=== PATIENT | female | born 1980 | race Caucasian/White ===

== ENCOUNTER 2018-02-27 08:00 | Outpatient (CLI) | payer MEDICAID ==
[2018-02-27 19:09] LABS: BASOPHILS # (AUTO) 0.1 10^3/uL (0.0-0.1); BASOPHILS % (AUTO) 0.9 %; EOSINOPHILS # (AUTO) 0.5 10^3/uL (0.0-0.7); EOSINOPHILS % (AUTO) 6.4 %; HGB - HEMOGLOBIN 10.7 g/dL (12.0-16.0); LYMPHOCYTES # (AUTO) 2.3 10^3/uL (1.5-3.5); MEAN CORPUSCULAR HEMOGLOBIN 24.6 pg (27.0-31.0); MEAN CORPUSCULAR VOLUME 79.6 fL (81.0-99.0); MEAN PLATELET VOLUME 8.7 fL (7.9-10.8); MONOCYTES # (AUTO) 0.5 10^3/uL (0.0-1.0); NEUTROPHILS # (AUTO) 5.1 10^3/uL (1.5-6.6); NEUTROPHILS % (AUTO) 59.7 %; PLT - PLATELET COUNT 320 10^3/uL (130-450); RED BLOOD COUNT 4.33 10^6/uL (4.20-5.40); RED CELL DISTRIBUTION WIDTH 17.2 % (12.0-15.0); WHITE BLOOD COUNT 8.5 x10^3/uL (4.8-10.8)
[2018-02-27 19:20] LABS: HB2 TOTAL 11.6 g/dL; HEMOGLOBIN A1C 0.42 g/dL; HEMOGLOBIN A1C % 5.5 % (4.6-6.2)
[2018-02-27 19:23] LABS: % IRON SATURATION 9 % (20-50); ALBUMIN 3.7 g/dL (3.2-5.5); ALBUMIN/GLOBULIN RATIO 1.1 (1.0-2.2); ALKALINE PHOSPHATASE 53 IU/L (42-121); ALT ALANINE AMINOTRANSFERASE 15 IU/L (10-60); AST ASPARTATE AMINOTRANSFERASE 19 IU/L (10-42); BILIRUBIN,TOTAL 0.7 mg/dL (0.2-1.0); BUN - BLOOD UREA NITROGEN 15 mg/dL (6-20); CALCIUM 8.4 mg/dL (8.5-10.3); CARBON DIOXIDE - CO2 27 mmol/L (21-32); CHLORIDE 102 mmol/L (101-111); CHOLESTEROL 117 mg/dL; CREATININE 0.6 mg/dL (0.4-1.0); GFR - MDRD 112 (>89); GLUCOSE 97 mg/dL (70-100); HDL CHOLESTEROL 26 mg/dL; IRON 36 ug/dL (28-170); LDL CHOLESTEROL,CALCULATED 78 mg/dL; SODIUM 135 mmol/L (135-145); TOTAL IRON BINDING CAPACITY 406 ug/dL (250-450); TOTAL PROTEIN 7.2 g/dL (6.7-8.2); TRANSFERRIN 290 mg/dL (192-382); VLDL CHOLESTEROL 13 mg/dL
[2018-02-27 19:24] LABS: CHOL/HDL RATIO 4.5 (<4.4)
[2018-02-27 19:30] LABS: THYROID STIMULATING HORMONE 0.97 uIU/mL (0.34-5.60)
[2018-02-27 19:34] LABS: FERRITIN 10.9 ng/mL (11.0-306.8)
== END 2018-02-27 08:01 ==
LOC: LAB.WCP 08:00
PROVIDERS: ATTEND Physician Assistant
DX: Z00.00 Encounter for general adult medical examination without abnormal findings (principal); E66.9 Obesity, unspecified; Z86.2 Personal history of diseases of the blood and blood-forming organs and certain disorders involving the immune mechanism
CPT/HCPCS: 36415; 80053; 80061; 82728; 83036; 83540; 83721; 84443; 84466; 85025

== ENCOUNTER 2018-03-19 13:18 | Outpatient (CLI) | payer MEDICAID ==
--- NOTE | 2018-03-19 14:15 | XRAY Report ---
Procedure Date: 03/19/2018 Accession Number: [id number] / [id number] Procedure: [place] - Modified Barium Swallow W/SP CPT Code: FULL RESULT: EXAM: Modified Barium Swallow W/SP DATE: 03/19/2018 2:09 PM CLINICAL HISTORY: GLOBUS SENSATION TECHNIQUE: Lateral fluoroscopy is performed during swallowing of thin barium and barium impregnated food. COMPARISON: None FINDINGS: The swallowing mechanism proceeds normally. No findings of aspiration, cricopharyngeus dysfunction, nasopharyngeal reflux or other abnormality. Fluoroscopy time 1 minute 12 seconds, number of images 61. IMPRESSION: Normal barium swallow.
== END 2018-03-19 13:19 | disposition home or self-care (01) ==
LOC: DI 13:18
PROVIDERS: ATTEND Physician Assistant
DX: F45.8 Other somatoform disorders (principal)
CPT/HCPCS: 74230